=== PATIENT | female | born 1990 ===

== ENCOUNTER 2019-07-01 11:23 | Inpatient (IN) | payer OTHER ==
[~2019-07-01] VITALS: Ht 160 cm; Wt 83.5 kg
[2019-07-01] MEDS ORDERED: PRENATAL TABLE1 EAC1 PO (11:25)
== END 2019-07-03 17:21 | disposition home or self-care (01) | DRG 807 ==
LOC: OB/GYN 11:23 → LDR 11:23 → OB/GYN 21:08
PROVIDERS: ADMIT Obstetrics & Gynecology
PROC: 10E0XZZ Delivery of Products of Conception, External Approach (ICD-10-PCS; principal; 2019-07-01)
PROC: 3E0P7VZ Introduction of Hormone into Female Reproductive, Via Natural or Artificial Opening (ICD-10-PCS; 2019-07-01)
PROC: 3E033VJ Introduction of Other Hormone into Peripheral Vein, Percutaneous Approach (ICD-10-PCS; 2019-07-01)
PROC: 4A1HXCZ Monitoring of Products of Conception, Cardiac Rate, External Approach (ICD-10-PCS; 2019-07-01)
DX: O80 Encounter for full-term uncomplicated delivery (principal); Z37.0 Single live birth; Z3A.38 38 weeks gestation of pregnancy